=== PATIENT | female | born 1980 | race African-American/Black ===

== ENCOUNTER 2019-11-08 17:29 | Emergency (ER) | payer OTHER ==
[2019-11-09 12:48] LABS: SARS-CoV-2 MS2 Positive; SARS-CoV-2 N Gene Negative; SARS-CoV-2 S Gene Negative; SARS-CoV-2 orf1ab Negative
== END 2019-11-08 18:27 | disposition home or self-care (01) ==
LOC: ERS 17:29
DX: J02.9 Acute pharyngitis, unspecified (principal); R05 Cough; Z20.828 Contact with and (suspected) exposure to other viral communicable diseases
CPT/HCPCS: 87635; 99283; U0003

== ENCOUNTER 2020-03-25 16:40 | Emergency (ER) | payer OTHER ==
[2020-03-25] MEDS ORDERED: Fluorescein Opthalmic Strip ONE ×2 (17:41→17:45)
[2020-03-25] MEDS ORDERED: Proparacaine 0.5% Opth 15 ML BOT ONE (17:41)
[2020-03-25] MEDS ORDERED: HYDROcodone/Acetaminophen 5/325 mg Tablet ONE (18:15)
[2020-03-25] MEDS ORDERED: Ibuprofen 200 MG TAB ONE (18:15)
== END 2020-03-25 18:22 | disposition home or self-care (01) ==
LOC: ERS 16:40
DX: H18.823 Corneal disorder due to contact lens, bilateral (principal)
CPT/HCPCS: 99283

== ENCOUNTER 2020-10-23 09:47 | Emergency (ER) | payer OTHER ==
[2020-10-23 20:20] LABS: SARS-CoV-2 PCR by NAA DETECTED (NotDetected)
== END 2020-10-23 10:31 | disposition home or self-care (01) ==
LOC: ERS 09:47
DX: U07.1 COVID-19 (principal)
CPT/HCPCS: 99283; U0003; U0005

== ENCOUNTER 2021-02-05 18:48 | Emergency (ER) | payer OTHER | END 2021-02-05 20:59 | disposition home or self-care (01) | LOC: ERS 18:48 | DX: B34.9 Viral infection, unspecified (principal) | CPT/HCPCS: 99283 ==

== ENCOUNTER 2021-09-29 11:39 | Emergency (ER) | payer SELFPAY ==
[2021-09-29 12:07] LABS: #Basophils 0.1 thou/uL (0.0-0.2); #Eosinphils 0.1 thou/uL (0.0-0.7); #Lymphocytes 1.9 thou/uL (1.20-3.40); #Monocytes 0.5 thou/uL (0.11-0.59); #Neutrophils 1.8 thou/uL (1.40-6.50); %Basophils 1.8 % (0.0-1.0); %Eosinophils 2.5 % (0.0-10.0); %Monocytes 10.8 % (0.0-10.0); %Neutrophils 41.9 % (42.0-75.0); Hemoglobin 13.2 g/dL (12.0-16.0); Mean Corpuscular HGB CONC 32.5 g/dL (32.0-36.0); Mean Corpuscular Hemoglobin 30.6 pg (27.0-31.0); Mean Platelet Volume 8.3 fL (7.4-10.4); Platelet Count 280 thou/uL (130-400); RBC Distribution Width 12.1 % (11.5-14.5); White Blood Cell (WBC) Count 4.3 thou/uL (4.8-10.8)
[2021-09-29 12:15] LABS: BHCG - Serum Negative (NEGATIVE); Pregs Control Background? CLEAR/WHITE (CLR/WHITE); Pregs Control Bar Appear? YES (CONTROL BAR)
[2021-09-29 12:30] LABS: ALT (SGPT) 29 U/L (8-55); AST (SGOT) 30 U/L (5-34); Albumin 4.1 g/dL (3.5-5.0); Alkaline Phosphatase 76 U/L (40-110); Anion Gap 12 mmol/L (10-20); BUN (Urea Nitrogen) 12 mg/dL (7.0-18.7); Bilirubin, Total 0.5 mg/dL (0.2-1.2); Calc. Creatinine Clearance 0 mL/min (70-130); Calcium 8.8 mg/dL (7.8-10.44); Carbon Dioxide 22 mmol/L (22-29); Chloride 106 mmol/L (98-107); Globulin 3.4 g/dL (2.4-3.5); Glucose 84 mg/dL (70-105); Potassium 3.9 mmol/L (3.5-5.1); Protein, Total 7.5 g/dL (6.0-8.3); Sodium 136 mmol/L (136-145)
== END 2021-09-29 13:17 | disposition home or self-care (01) ==
LOC: ERS 11:39
DX: N93.8 Other specified abnormal uterine and vaginal bleeding (principal)
CPT/HCPCS: 36415; 76856; 80053; 84703; 85025; 86850; 86900; 86901

== ENCOUNTER 2022-11-08 16:07 | Emergency (ER) | payer SELFPAY ==
[2022-11-08] MEDS ORDERED: Ketorolac Tromethamine 30 MG/ML VIAL ONE (16:51)
== END 2022-11-08 17:14 | disposition home or self-care (01) ==
LOC: ERS 16:07
DX: S39.012A Strain of muscle, fascia and tendon of lower back, initial encounter (principal); X50.0XXA Overexertion from strenuous movement or load, initial encounter
CPT/HCPCS: 96372; 99283; J1885

== ENCOUNTER 2023-08-20 14:54 | Emergency (ER) | payer OTHER ==
[2023-08-20] MEDS ORDERED: Ketorolac Tromethamine 30 MG (1 mL) VIAL ONE ×2 (16:01→16:04)
[2023-08-20] MEDS ORDERED: Acetaminophen 500 MG TAB ONE (16:01)
[2023-08-20 16:14] LABS: Bacteria/HPF None Seen HPF (None Seen); Bilirubin Negative (Negative); Blood, Urine Negative (Negative); CAUTI Indications for Culture Dysuria,urgency,freq; Clarity Clear (Clear); Glucose, Urine (Dipstick) Normal (Negative); Ketone, Urine Negative (Negative); Leukocyte Negative Leu/uL (Negative); Nitrite Negative (Negative); Protein, Urine (Dipstick) Negative (Neg-Trace); RBC/HPF 0-3 HPF (0-3); WBC/HPF 0-3 HPF (0-3)
[2023-08-20 16:20] LABS: Urine Culture Reflex No No
== END 2023-08-20 16:37 | disposition home or self-care (01) ==
LOC: ERS 14:54
DX: T14.8XXA Other injury of unspecified body region, initial encounter (principal); M54.50 Low back pain, unspecified; X58.XXXA Exposure to other specified factors, initial encounter
CPT/HCPCS: 81001; 96372; 99283; J1885

== ENCOUNTER 2024-03-17 14:37 | Emergency (ER) | payer OTHER | END 2024-03-17 16:53 | disposition home or self-care (01) | LOC: ERS 14:37 | DX: J06.9 Acute upper respiratory infection, unspecified (principal) | CPT/HCPCS: 71045; 87081; 87428; 87430 ==

== ENCOUNTER 2024-03-22 15:39 | Emergency (ER) | payer OTHER ==
[2024-03-22] MEDS ORDERED: Ketorolac Tromethamine 30 MG (1 mL) VIAL ONE (16:51)
[2024-03-22] MEDS ORDERED: predniSONE 20 MG TAB ONE (16:51)
== END 2024-03-22 17:42 | disposition home or self-care (01) ==
LOC: ERS 15:39
DX: R05.9 Cough, unspecified (principal); R49.0 Dysphonia
CPT/HCPCS: 71046; 96372; J1885; J7512